=== PATIENT | female | born 1950 | race Caucasian/White ===

== ENCOUNTER → 2017-03-04 | Outpatient (CLI) | payer MEDICARE ==
[~2017-03-04] MED LIST: ALBU8.5H8 INH; BUDE10.22 INH; TIOT18CA INH
== END | disposition home or self-care (01) ==
LOC: CFH 08:35
PROVIDERS: ATTEND Internal Medicine Pulmonary Disease
DX: J84.10 Pulmonary fibrosis, unspecified (principal)
CPT/HCPCS: 71250

== ENCOUNTER → 2017-11-28 | Outpatient (CLI) | payer MEDICARE | END | disposition home or self-care (01) | LOC: CFH 10:07 | PROVIDERS: ATTEND Nurse Practitioner Family | DX: J32.1 Chronic frontal sinusitis (principal); J32.3 Chronic sphenoidal sinusitis; J32.0 Chronic maxillary sinusitis; J34.2 Deviated nasal septum | CPT/HCPCS: 70486 ==

== ENCOUNTER → 2018-02-26 | Outpatient (CLI) | payer MEDICARE | END | disposition home or self-care (01) | LOC: CFH 10:24 | PROVIDERS: ATTEND Nurse Practitioner Family | DX: R93.8 Abnormal findings on diagnostic imaging of other specified body structures (principal) | CPT/HCPCS: 71250 ==

== ENCOUNTER 2018-04-29 12:11 | Inpatient (IN) | payer MEDICARE ==
[~2018-04-29] VITALS: Ht 170.2 cm; Wt 95.3 kg
[2018-04-29] MEDS ORDERED: SODIUM CHLORIDE FLUSH 10ML SYR IVF ONE (12:30)
[2018-04-29] MEDS ORDERED: ALBUTEROL/IPRATROPIUM 2.5MG/0.5MG, 3 ML ONE (12:34)
[2018-04-29 13:07] LABS: BASOPHILS # (AUTO) 0.04 x10^3/uL (0-0.1); BASOPHILS % (AUTO) 0 % (0-1); EOSINOPHILS # (AUTO) 0.04 x10^3/uL (0-0.4); EOSINOPHILS % (AUTO) 0 % (1-7); LYMPHOCYTES # (AUTO) 1.48 x10^3/uL (1-3.4); LYMPHOCYTES % (AUTO) 14 % (22-44); MD NO; MEAN CORPUSCULAR HEMOGLOBIN 31.7 pg (27.0-34.8); MEAN CORPUSCULAR HGB CONC 33.7 g/dL (32.4-35.8); MEAN CORPUSCULAR VOLUME 94.1 fL (80-100); MEAN PLATELET VOLUME 9.4 fL (7.4-10.4); MONOCYTES # (AUTO) 1.14 x10^3/uL (0.2-0.8); MONOCYTES % (AUTO) 11 % (2-9); NEUTROPHILS # (AUTO) 7.78 x10^3/uL (1.8-6.8); NEUTROPHILS % (AUTO) 74 % (42-75); PLATELET COUNT 270 x10^3/uL (130-400); RED BLOOD COUNT 4.51 x10^6/uL (3.82-5.3); RED CELL DISTRIBUTION WIDTH 13.7 % (9.6-15.2)
[2018-04-29 13:15] LABS: INTERNATIONAL NORMALIZED RATIO 1.04 (0.93-1.1); PROTHROMBIN TIME 10.7 Seconds (9.6-11.5)
[2018-04-29] MEDS ORDERED: TEST60GE2 TD (13:15)
[2018-04-29 13:17] LABS: ALBUMIN 3.5 g/dL (3.4-5.0); ANION GAP 11 mmol/L (5-15); CALCIUM 8.7 mg/dL (8.5-10.1); CHLORIDE 102 mmol/L (98-107)
[2018-04-29 13:23] LABS: ALANINE AMINOTRANSFERASE 32 U/L (12-78); ALKALINE PHOSPHATASE 67 U/L (45-117); BILIRUBIN,TOTAL 0.6 mg/dL (0.2-1.0); CREATININE 0.79 mg/dL (0.55-1.02); TOTAL PROTEIN 7.6 g/dL (6.4-8.2)
[2018-04-29] MEDS ORDERED: methylPREDNISolone SOD SUCC 125 MG/2 ML ONE (14:27)
[2018-04-29] MEDS ORDERED: BENZONATATE 100 MG CAPSULE ONE (14:27)
[2018-04-29] MEDS ORDERED: BENZONATATE 100 MG CAPSULE PO ONE (14:30)
[2018-04-29] MEDS: methylPREDNISolone SOD SUCC 125 MG/2 ML IVPush SCH ×2 (14:32→20:21)
[2018-04-29 15:16] VITALS: BP 130/60
[2018-04-29] MEDS ORDERED: SODIUM CHLORIDE 0.9% 1,000 ML IV SCH (15:25)
[2018-04-29] MEDS: ALBUTEROL/IPRATROPIUM 2.5MG/0.5MG, 3 ML HHN SCH ×2 (15:30→21:30)
[2018-04-29] MEDS ORDERED: ACETAMINOPHEN 325 MG TABLET PO PRN (15:30)
[2018-04-29] MEDS ORDERED: ALBUTEROL SULFATE 2.5 MG/3 ML NPPB PRN (15:30)
[2018-04-29] MEDS ORDERED: methylPREDNISolone SOD SUCC 125 MG/2 ML IVPush SCH (15:30)
[2018-04-29] MEDS ORDERED: GUAIFENESIN/DM 200-20MG, 10ML UDC PO PRN (15:30)
[2018-04-29] MEDS ORDERED: ONDANSETRON 2MG/ML, 2ML IVPush PRN (15:30)
[2018-04-29] MEDS ORDERED: ENALAPRILAT 1.25 MG/ML, 2ML IVPush PRN (15:30)
[2018-04-29 15:46] VITALS: BP 130/60
[2018-04-29] MEDS: CEFTRIAXONE PMX 1GM/50ML 50 ML IV SCH (16:18)
[2018-04-29] MEDS: GUAIFENESIN 200 MG TABLET PO SCH ×2 (16:25→20:23)
[2018-04-29] MEDS: ENOXAPARIN 40 MG/0.4 ML SQ SCH (16:48)
[2018-04-29] MEDS: AZITHROMYCIN 500 MG in SODIUM CHLORIDE 0.9% 250 ML IV SCH (17:11)
[2018-04-29] MEDS ORDERED: OMNIPAQUE 350 MG/ML, 100ML BOTTLE ONE (18:55)
[2018-04-29 20:17] VITALS: BP 104/66
[2018-04-29] MEDS: METHYLPREDNISOLONE MC SCH ×2 (21:00→21:14)
[2018-04-30] MEDS: ALBUTEROL/IPRATROPIUM 2.5MG/0.5MG, 3 ML HHN SCH ×4 (03:30→21:00)
[2018-04-30 03:55] VITALS: BP 113/73
[2018-04-30 05:48] LABS: ALBUMIN 3.1 g/dL (3.4-5.0); ANION GAP 6 mmol/L (5-15); CHLORIDE 108 mmol/L (98-107)
[2018-04-30 05:52] LABS: BASOPHILS % (AUTO) 0 % (0-1); EOSINOPHILS % (AUTO) 0 % (1-7); LYMPHOCYTES # (AUTO) 0.65 x10^3/uL (1-3.4); LYMPHOCYTES % (AUTO) 9 % (22-44); MD NO; MEAN CORPUSCULAR HEMOGLOBIN 31.6 pg (27.0-34.8); MEAN CORPUSCULAR HGB CONC 33.5 g/dL (32.4-35.8); MEAN CORPUSCULAR VOLUME 94.4 fL (80-100); MEAN PLATELET VOLUME 9.8 fL (7.4-10.4); MONOCYTES % (AUTO) 4 % (2-9); NEUTROPHILS # (AUTO) 6.44 x10^3/uL (1.8-6.8); NEUTROPHILS % (AUTO) 87 % (42-75); PLATELET COUNT 291 x10^3/uL (130-400); RED BLOOD COUNT 4.19 x10^6/uL (3.82-5.3); RED CELL DISTRIBUTION WIDTH 13.8 % (9.6-15.2)
[2018-04-30] MEDS: GUAIFENESIN 200 MG TABLET PO SCH ×4 (05:52→20:41)
[2018-04-30 05:53] LABS: ALANINE AMINOTRANSFERASE 37 U/L (12-78); ALKALINE PHOSPHATASE 60 U/L (45-117); BILIRUBIN,TOTAL 0.2 mg/dL (0.2-1.0); TOTAL PROTEIN 7.1 g/dL (6.4-8.2)
[2018-04-30 06:45] VITALS: BP 132/74
[2018-04-30] MEDS: methylPREDNISolone SOD SUCC 125 MG/2 ML IVPush SCH ×4 (08:00→22:36)
[2018-04-30 12:09] VITALS: BP 107/73
[2018-04-30] MEDS ORDERED: ALBUTEROL SULFATE 2.5 MG/3 ML NPPB PRN (15:00)
[2018-04-30] MEDS: CEFTRIAXONE PMX 1GM/50ML 50 ML IV SCH (16:04)
[2018-04-30] MEDS: ENOXAPARIN 40 MG/0.4 ML SQ SCH (16:04)
[2018-04-30] MEDS: AZITHROMYCIN 500 MG in SODIUM CHLORIDE 0.9% 250 ML IV SCH (17:00)
[2018-04-30 19:55] VITALS: BP 119/72
[2018-05-01 02:12] LABS: HEMOGLOBIN A1C 6.3 % (4.2-6.3)
[2018-05-01] MEDS: ALBUTEROL/IPRATROPIUM 2.5MG/0.5MG, 3 ML HHN SCH ×4 (03:00→22:50)
[2018-05-01 03:42] VITALS: BP 132/77
[2018-05-01] MEDS: methylPREDNISolone SOD SUCC 125 MG/2 ML IVPush SCH ×3 (04:23→22:56)
[2018-05-01] MEDS: GUAIFENESIN 200 MG TABLET PO SCH ×4 (05:42→20:27)
[2018-05-01 06:57] VITALS: BP 126/70
[2018-05-01] MEDS: AZITHROMYCIN 500 MG TABLET PO SCH (07:48)
[2018-05-01] MEDS: AMOXICILLIN/CLAV 875-125MG TABLET PO SCH ×2 (07:48→20:27)
[2018-05-01 14:54] VITALS: BP 118/65
[2018-05-01] MEDS: ENOXAPARIN 40 MG/0.4 ML SQ SCH (15:52)
[2018-05-01 19:09] VITALS: BP 113/65
[2018-05-02 00:40] VITALS: BP 114/67
[2018-05-02] MEDS: ALBUTEROL/IPRATROPIUM 2.5MG/0.5MG, 3 ML HHN SCH ×2 (03:40→09:00)
[2018-05-02 07:06] VITALS: BP 132/75
[2018-05-02] MEDS: GUAIFENESIN 200 MG TABLET PO SCH (08:17)
[2018-05-02] MEDS: AZITHROMYCIN 500 MG TABLET PO SCH (08:18)
[2018-05-02] MEDS: AMOXICILLIN/CLAV 875-125MG TABLET PO SCH (08:18)
[2018-05-02] MEDS ORDERED: TIOT18CA INH (11:31)
[2018-05-02] MEDS ORDERED: GUAI5SYR PO (11:31)
[2018-05-02] MEDS ORDERED: AZIT500T5 PO (11:31)
[2018-05-02] MEDS ORDERED: GUAI200T3 PO (11:31)
[2018-05-02] MEDS ORDERED: AMOX1TAB12 PO (11:31)
[2018-05-02] MEDS ORDERED: PRED20TA PO (11:33)
[2018-05-02] MEDS ORDERED: ALBU2.5V NPPB (11:33)
== END 2018-05-02 12:50 | disposition home or self-care (01) | DRG 193 ==
LOC: ED 12:18 → 3NE 14:17 → UNDOADMIN 14:19 → DCLOUNGE 05-02 11:38
PROVIDERS: ADMIT Internal Medicine; ATTEND Internal Medicine
DX: J18.9 Pneumonia, unspecified organism (principal); J96.01 Acute respiratory failure with hypoxia; J44.0 Chronic obstructive pulmonary disease with (acute) lower respiratory infection; E66.9 Obesity, unspecified; M06.9 Rheumatoid arthritis, unspecified; R73.9 Hyperglycemia, unspecified; R00.0 Tachycardia, unspecified; J20.9 Acute bronchitis, unspecified; Z88.6 Allergy status to analgesic agent; Z87.891 Personal history of nicotine dependence; Z68.32 Body mass index [BMI] 32.0-32.9, adult; Z90.710 Acquired absence of both cervix and uterus
CPT/HCPCS: 36415; 71045; 71275; 80053; 83036; 83880; 85025; 85610; 85730; 87040; 87070; 87205; 93005; 94640; 99285; G0378; J0456; J0696; J1650; J7620; Q9967; J2930; J7030; J7050; J7512

== ENCOUNTER → 2018-06-24 | Outpatient (CLI) | payer MEDICARE ==
[~2018-06-24] MED LIST changes: +ALBU2.5V NPPB; +AMOX1TAB12 PO; +AZIT500T5 PO; +GUAI200T3 PO; +GUAI5SYR PO; +PRED20TA PO; +TEST60GE2 TD
== END | disposition home or self-care (01) ==
LOC: CFH 10:07
PROVIDERS: ATTEND Nurse Practitioner Family
DX: M51.34 Other intervertebral disc degeneration, thoracic region (principal); D73.89 Other diseases of spleen; K76.89 Other specified diseases of liver; R91.8 Other nonspecific abnormal finding of lung field; R59.0 Localized enlarged lymph nodes
CPT/HCPCS: 71250

== ENCOUNTER 2019-05-23 11:52 | Emergency (ER) | payer MEDICARE ==
[~2019-05-23] VITALS: Ht 170.2 cm; Wt 99.9 kg
[~2019-05-23 11:52] MED LIST changes: +AZIT500T10 PO; -AZIT500T5 PO; -GUAI200T3 PO; +GUAI200T37 PO
[2019-05-23 12:08] VITALS: BP 198/89
[2019-05-23 12:45] LABS: BASOPHILS # (AUTO) 0.05 x10^3/uL (0-0.1); BASOPHILS % (AUTO) 1 % (0-1); EOSINOPHILS # (AUTO) 0.34 x10^3/uL (0-0.4); EOSINOPHILS % (AUTO) 4 % (1-7); LYMPHOCYTES # (AUTO) 1.32 x10^3/uL (1-3.4); LYMPHOCYTES % (AUTO) 16 % (22-44); MD NO; MEAN CORPUSCULAR HGB CONC 32.5 g/dL (32.4-35.8); MEAN CORPUSCULAR VOLUME 95.4 fL (80-100); MEAN PLATELET VOLUME 9.1 fL (7.4-10.4); MONOCYTES # (AUTO) 0.67 x10^3/uL (0.2-0.8); MONOCYTES % (AUTO) 8 % (2-9); NEUTROPHILS # (AUTO) 5.94 x10^3/uL (1.8-6.8); NEUTROPHILS % (AUTO) 72 % (42-75); PLATELET COUNT 313 x10^3/uL (130-400); RED BLOOD COUNT 4.62 x10^6/uL (3.82-5.3); RED CELL DISTRIBUTION WIDTH 14.3 % (9.6-15.2)
[2019-05-23 12:52] LABS: ALBUMIN 3.7 g/dL (3.4-5.0); ANION GAP 3 mmol/L (5-15); CALCIUM 8.8 mg/dL (8.5-10.1); CHLORIDE 110 mmol/L (98-107); CREATININE 0.72 mg/dL (0.55-1.02)
--- NOTE | 2019-05-23 12:55 | NUR ---
TASK RN: Recieved report from NORY Drummond. Breaking primary RN for meal break. NADN. No needs expressed. Pt resting on [employer]. Call light within reach.
[2019-05-23] MEDS ORDERED: OXYcodone/APAP 5/325MG TABLET ONE (13:28)
[2019-05-23] MEDS ORDERED: HYDROcodone/APAP 5/325 TABLET PO ONE (13:30)
--- NOTE | 2019-05-23 13:44 | NUR ---
ATTEMPTED TO MEDICATE PT FOR PAIN VIA SEP, PT DECLINED AT THIS TIME. ERMD IN TO UPDATE PT. PT TO GO TO CT NOW
--- NOTE | 2019-05-23 14:21 | NUR ---
PT STILL AWAITING CT. DENIES NEEDS AT THIS TIME
--- NOTE | 2019-05-23 14:35 | NUR ---
PT TO CT AT THIS TIME
[2019-05-23] MEDS ORDERED: OMNIPAQUE 350 MG/ML, 100ML BOTTLE ONE (14:39)
--- NOTE | 2019-05-23 15:59 | NUR ---
Patient/Caregiver given discharge instructions and they have confirmed that they understand the instructions. Patient ambulatory with steady gait.
== END 2019-05-23 16:01 | disposition home or self-care (01) ==
LOC: ED 14:06
DX: S22.42XA Multiple fractures of ribs, left side, initial encounter for closed fracture (principal); J44.9 Chronic obstructive pulmonary disease, unspecified; M06.9 Rheumatoid arthritis, unspecified; Z87.891 Personal history of nicotine dependence; W18.30XA Fall on same level, unspecified, initial encounter; Y93.89 Activity, other specified; Y92.009 Unspecified place in unspecified non-institutional (private) residence as the place of occurrence of the external cause; Y99.8 Other external cause status
CPT/HCPCS: 36415; 71046; 71260; 74160; 80048; 82040; 85025; 99284; Q9967